=== PATIENT | female | born 1955 | race Caucasian/White ===

== ENCOUNTER 2022-03-10 07:05 | Outpatient (CLI) | payer MEDICARE, SELFPAY ==
--- NOTE | 2022-03-10 07:15 | MR_ITS ---
[address] [address] Phone:?[phone] Fax:?[phone] Referring Physician Information: Prasanth Dempsey M.D. [address] [place] [id number] Phone:?[phone] Fax:?[phone] Patient:?Karlene Layton D.O.B:?1955 Sex:?Female Phone:?[phone] [facility] MRN:?[id number] Exam Date:?03/10/2022 ? EXAM: MRI OF THE RIGHT KNEE CLINICAL INFORMATION: The patient is a 66-year-old with right knee pain. Evaluate for medial meniscal tear. PRIOR SURGERY: None reported. COMPARISON STUDIES: There are no prior studies available for comparison. TECHNICAL INFORMATION: Imaging was performed on a high-field, 1.5 [employer] MR scanner. Coronal proton-density and coronal STIR imaging of the right knee was performed in addition to sagittal proton-density and fat-suppressed proton- density imaging. Axial proton-density and axial fat-suppressed T2 imaging was also performed. FINDINGS: Articular/Extraarticular collections: Effusion: Mild to moderate. Popliteal cyst: Minimal. Loose bodies: No well-defined intra-articular loose bodies are present. Subcutaneous and extraarticular soft tissues: Within normal limits. Osseous structures: There are broad-based areas of increased marrow signal intensity and cortical irregularity along the articular surfaces of all 3 joint compartments, but most severely involving the central and lateral articular surfaces of the patellofemoral joint. The findings are in keeping with the chondromalacia and chondral loss described below and are consistent with patellofemoral osteoarthritis. Subcortical cystic change along the patellofemoral articulation can be seen. Spurring along the articular margins can be seen. No definite evidence for fracture, contusion, or stress injury about the right knee can be seen. Ligamentous structures: ACL: Intact and normal in appearance. PCL: Intact and normal in appearance. MCL: Intact and normal in appearance. LCL: Intact and normal in appearance. Posterolateral corner: Intact and normal in appearance. Posteromedial corner: No posteromedial corner soft tissue injury. Semimembranosus and pes anserine tendons demonstrate no tendinopathy or associated bursitis. Extensor mechanism/Patellar retinacular structures: Patellar tendon: Intact, without tendinopathy. Quadriceps tendon: Intact, without tendinopathy. Retinacula: The medial and lateral retinacula are intact. The medial patellofemoral ligament is intact. Medial compartment: Medial meniscus: Degeneration and fraying of the medial meniscus can be seen without definite areas of more well-defined tearing. No parameniscal cyst formation is identified. Medial femoral condyle: Grade II to III chondromalacia can be seen along the weightbearing surfaces of the medial femoral condyle. Medial tibial plateau: Grade II chondromalacia can be seen along the weightbearing surfaces of the medial tibial plateau. Lateral compartment: Lateral meniscus: Degeneration and fraying of the lateral meniscus can be seen with apical free edge and inferior surface tearing of the posterior horn noted on sagittal series 5 images 11 and 12. The area of tearing measures approximately 5 mm in greatest dimension. No other well-defined lateral meniscal tearing is seen. No parameniscal cyst formation is identified. Lateral femoral condyle: Grade II to III chondromalacia can be seen along the central and posterior articular surfaces of the lateral femoral condyle. Lateral tibial plateau: Grade II to III chondromalacia can be seen along the articular surfaces of the lateral tibial plateau. Patellofemoral compartment: Patella: Broad-based, full-thickness chondral loss can be seen along the lateral patellar facet on axial series 4 image 14. The area measures 30 mm in mediolateral dimension and underlying bony changes are seen. Additional grade II to III chondromalacia of the medial patellar facet is noted. Trochlea: Full-thickness chondral loss can be seen along the lateral articular surfaces of the femoral trochlea on axial series 4 image 16 and on sagittal series 6 image 11. The area measures approximately 43 mm in greatest dimension. Underlying bony changes are present. Grade II chondromalacia of the medial aspect of the femoral trochlea is identified. Neurovascular: No definite neurovascular abnormalities are seen. CONCLUSION: 1. Patellofemoral osteoarthritis with broad-based, full-thickness chondral loss and underlying bony changes. Additional chondromalacia and chondral thinning involving the medial and lateral joint compartments can be seen. 2. Degeneration of the medial and lateral menisci with mild apical free edge and inferior surface tearing of the posterior horn of the lateral meniscus. 3. The cruciate and collateral ligaments appear intact. 4. Mild to moderate knee joint effusion. [facility] Electronically signed on 03/10/2022 12:29:00 PM by Jaya Garcia M.D.
== END 2022-03-10 07:06 | disposition home or self-care (01) ==
PROVIDERS: PCP Nurse Practitioner; Visit Provider Orthopaedic Surgery
DX: M25.561 Pain in right knee (principal); M17.9 Osteoarthritis of knee, unspecified; M94.261 Chondromalacia, right knee; M25.461 Effusion, right knee; G89.29 Other chronic pain
CPT/HCPCS: 73721